=== PATIENT | female | born 1985 | race Two or more races ===

== ENCOUNTER 2017-06-27 09:39 | Outpatient (CLI) | payer OTHER ==
[~2017-06-27 09:39] MED LIST: ZYRTEC10 MG PO
== END 2017-06-27 09:44 | disposition home or self-care (01) ==
LOC: SONOGRAMA 09:39
DX: Z34.82 Encounter for supervision of other normal pregnancy, second trimester (principal); Z3A.20 20 weeks gestation of pregnancy

== ENCOUNTER → 2017-08-01 08:10 | Outpatient (CLI) | payer OTHER | END | disposition home or self-care (01) | LOC: LAB 08:10 | DX: Z34.00 Encounter for supervision of normal first pregnancy, unspecified trimester (principal) ==

== ENCOUNTER 2017-08-24 12:52 | Outpatient (CLI) | payer OTHER | END 2017-08-24 16:23 | disposition home or self-care (01) | LOC: SONOGRAMA 12:52 | DX: Z34.00 Encounter for supervision of normal first pregnancy, unspecified trimester (principal) ==

== ENCOUNTER → 2017-09-27 15:14 | Outpatient (CLI) | payer OTHER | END | disposition home or self-care (01) | LOC: LAB 15:14 | DX: Z34.00 Encounter for supervision of normal first pregnancy, unspecified trimester (principal) ==

== ENCOUNTER 2017-10-06 13:26 | Inpatient (IN) | payer OTHER ==
[~2017-10-06] VITALS: Ht 157.5 cm; Wt 77.6 kg
[2017-10-16] MEDS ORDERED: PRENATAL FORMU1 EAC1 PO (03:42)
[2017-10-18] MEDS ORDERED: DERMOPLAST PAIN78 GM TOP (05:15)
== END 2017-10-18 16:12 | DRG 775 ==
LOC: LDR 10-16 02:41 → SURG-SUITE 10-16 02:41 → OB/GYN 10-23 13:24
PROC: 10E0XZZ Delivery of Products of Conception, External Approach (ICD-10-PCS; principal; 2017-10-16)
PROC: 0W8NXZZ Division of Female Perineum, External Approach (ICD-10-PCS; 2017-10-16)
PROC: 4A033R1 Measurement of Arterial Saturation, Peripheral, Percutaneous Approach (ICD-10-PCS; 2017-10-16)
PROC: 4A1HXCZ Monitoring of Products of Conception, Cardiac Rate, External Approach (ICD-10-PCS; 2017-10-16)
PROC: 3E033VJ Introduction of Other Hormone into Peripheral Vein, Percutaneous Approach (ICD-10-PCS; 2017-10-16)
DX: O80 Encounter for full-term uncomplicated delivery (principal); Z3A.39 39 weeks gestation of pregnancy; Z37.0 Single live birth

== ENCOUNTER 2018-03-12 11:17 | Outpatient (CLI) | payer OTHER ==
[~2018-03-12 11:17] MED LIST changes: +DERMOPLAST PAIN78 GM TOP; +PRENATAL FORMU1 EAC1 PO
== END 2018-03-12 11:20 | disposition home or self-care (01) ==
LOC: LAB 11:17
DX: Z11.3 Encounter for screening for infections with a predominantly sexual mode of transmission (principal)

== ENCOUNTER → 2018-10-25 07:37 | Outpatient (CLI) | payer OTHER | END | disposition home or self-care (01) | LOC: LAB 07:37 | DX: E04.1 Nontoxic single thyroid nodule (principal); N92.1 Excessive and frequent menstruation with irregular cycle; E78.2 Mixed hyperlipidemia; E55.9 Vitamin D deficiency, unspecified ==

== ENCOUNTER → 2019-03-28 16:26 | Outpatient (CLI) | payer OTHER | END | disposition home or self-care (01) | LOC: LAB 16:26 | DX: R05 Cough (principal); J11.1 Influenza due to unidentified influenza virus with other respiratory manifestations ==

== ENCOUNTER → 2019-06-12 11:27 | Outpatient (CLI) | payer OTHER | END | disposition home or self-care (01) | LOC: LAB 11:27 | DX: D50.8 Other iron deficiency anemias (principal); E83.51 Hypocalcemia; N39.0 Urinary tract infection, site not specified; E03.8 Other specified hypothyroidism ==

== ENCOUNTER 2019-07-15 08:41 | Outpatient (CLI) | payer OTHER | END 2019-07-15 08:48 | disposition home or self-care (01) | LOC: LAB 08:41 | DX: J11.1 Influenza due to unidentified influenza virus with other respiratory manifestations (principal); J20.0 Acute bronchitis due to Mycoplasma pneumoniae ==

== ENCOUNTER → 2020-01-10 08:28 | Outpatient (CLI) | payer OTHER | END | disposition home or self-care (01) | LOC: LAB 08:28 | PROVIDERS: ATTEND Obstetrics & Gynecology | DX: N95.1 Menopausal and female climacteric states (principal); E28.39 Other primary ovarian failure; E04.1 Nontoxic single thyroid nodule; E78.00 Pure hypercholesterolemia, unspecified; E55.9 Vitamin D deficiency, unspecified ==

== ENCOUNTER 2020-01-20 15:30 | Outpatient (CLI) | payer OTHER | END 2020-01-20 15:31 | disposition home or self-care (01) | LOC: LAB 15:30 | DX: Z20.828 Contact with and (suspected) exposure to other viral communicable diseases (principal) ==

== ENCOUNTER → 2020-04-01 12:40 | Outpatient (CLI) | payer OTHER | END | disposition home or self-care (01) | LOC: LAB 12:40 | PROVIDERS: ATTEND Internal Medicine | DX: Z20.828 Contact with and (suspected) exposure to other viral communicable diseases (principal) ==

== ENCOUNTER 2020-04-07 15:18 | Outpatient (CLI) | payer OTHER | END 2020-04-13 15:20 | disposition home or self-care (01) | LOC: PPH VACUNA 15:18 | DX: Z23 Encounter for immunization (principal) ==

== ENCOUNTER → 2020-04-21 15:40 | Outpatient (CLI) | payer OTHER | END | disposition home or self-care (01) | LOC: LAB 15:40 | PROVIDERS: ATTEND Surgery | DX: Z20.828 Contact with and (suspected) exposure to other viral communicable diseases (principal) ==

== ENCOUNTER → 2020-04-27 13:19 | Outpatient (CLI) | payer OTHER | END | disposition home or self-care (01) | LOC: LAB 13:19 | PROVIDERS: ATTEND Specialist | DX: Z11.3 Encounter for screening for infections with a predominantly sexual mode of transmission (principal) ==

== ENCOUNTER 2020-04-30 13:14 | Outpatient (CLI) | payer OTHER | END 2020-04-30 16:10 | disposition home or self-care (01) | LOC: SONOGRAMA 13:14 | PROVIDERS: ATTEND Radiology Diagnostic Radiology | DX: E03.2 Hypothyroidism due to medicaments and other exogenous substances (principal) ==

== ENCOUNTER 2020-05-04 11:33 | Outpatient (CLI) | payer OTHER | END 2020-05-04 13:11 | disposition home or self-care (01) | LOC: LAB 11:33 | PROVIDERS: ATTEND Internal Medicine | DX: Z20.828 Contact with and (suspected) exposure to other viral communicable diseases (principal) ==

== ENCOUNTER 2020-05-08 07:19 | Outpatient (CLI) | payer OTHER | END 2020-05-08 15:39 | disposition home or self-care (01) | LOC: LAB 07:19 | PROVIDERS: ATTEND Internal Medicine | DX: Z20.828 Contact with and (suspected) exposure to other viral communicable diseases (principal) ==

== ENCOUNTER → 2020-10-19 09:00 | Outpatient (CLI) | payer OTHER | END | disposition home or self-care (01) | LOC: LAB 09:00 | PROVIDERS: ATTEND Obstetrics & Gynecology | DX: N95.1 Menopausal and female climacteric states (principal); E28.310 Symptomatic premature menopause; E04.1 Nontoxic single thyroid nodule; E55.9 Vitamin D deficiency, unspecified; E78.00 Pure hypercholesterolemia, unspecified ==

== ENCOUNTER → 2020-11-03 06:57 | Outpatient (CLI) | payer OTHER | END | disposition home or self-care (01) | LOC: LAB 06:57 | PROVIDERS: ATTEND Emergency Medicine Pediatric Emergency Medicine | DX: Z03.818 Encounter for observation for suspected exposure to other biological agents ruled out (principal) ==

== ENCOUNTER 2021-01-14 08:01 | Outpatient (CLI) | payer OTHER | END 2021-01-14 08:03 | disposition home or self-care (01) | LOC: SONOGRAMA 08:01 | PROVIDERS: ATTEND Obstetrics & Gynecology | DX: N83.292 Other ovarian cyst, left side (principal); N83.291 Other ovarian cyst, right side; R10.84 Generalized abdominal pain; Z12.31 Encounter for screening mammogram for malignant neoplasm of breast ==

== ENCOUNTER 2021-03-22 08:00 | Outpatient (CLI) | payer OTHER | END 2021-03-22 08:30 | disposition home or self-care (01) | LOC: PPH VACUNA 08:00 | PROVIDERS: ATTEND Emergency Medicine Pediatric Emergency Medicine | DX: Z23 Encounter for immunization (principal) ==

== ENCOUNTER 2021-05-10 08:00 | Outpatient (CLI) | payer OTHER | END 2021-05-10 08:30 | disposition home or self-care (01) | LOC: PPH VACUNA 08:00 | PROVIDERS: ATTEND Emergency Medicine Pediatric Emergency Medicine | DX: Z23 Encounter for immunization (principal) ==

== ENCOUNTER 2021-06-08 10:29 | Outpatient (CLI) | payer OTHER | END 2021-06-08 10:31 | disposition home or self-care (01) | LOC: RAD 10:29 | PROVIDERS: ATTEND Physical Medicine & Rehabilitation | DX: M54.2 Cervicalgia (principal); M54.6 Pain in thoracic spine; M17.11 Unilateral primary osteoarthritis, right knee; M54.59 Other low back pain ==

== ENCOUNTER 2021-06-09 13:26 | Outpatient (CLI) | payer OTHER | END 2021-06-09 13:30 | disposition home or self-care (01) | LOC: LAB 13:26 | PROVIDERS: ATTEND Plastic Surgery | DX: Z03.818 Encounter for observation for suspected exposure to other biological agents ruled out (principal); Z11.59 Encounter for screening for other viral diseases ==

== ENCOUNTER 2021-06-14 12:10 | Outpatient (CLI) | payer OTHER | END 2021-06-14 12:11 | disposition home or self-care (01) | LOC: LAB 12:10 | PROVIDERS: ATTEND Plastic Surgery | DX: Z03.818 Encounter for observation for suspected exposure to other biological agents ruled out (principal); Z11.59 Encounter for screening for other viral diseases ==

== ENCOUNTER 2021-06-14 13:36 | Outpatient (CLI) | payer OTHER | END 2021-06-14 13:37 | disposition home or self-care (01) | LOC: LAB 13:36 | PROVIDERS: ATTEND Plastic Surgery | DX: Z03.818 Encounter for observation for suspected exposure to other biological agents ruled out (principal); Z11.59 Encounter for screening for other viral diseases ==

== ENCOUNTER 2021-06-17 10:00 | Outpatient (CLI) | payer OTHER | END 2021-06-17 10:30 | disposition home or self-care (01) | LOC: ASH CLINIC 10:00 | PROVIDERS: ATTEND Internal Medicine Sports Medicine | DX: U07.1 COVID-19 (principal); Z23 Encounter for immunization ==

== ENCOUNTER 2021-09-15 10:37 | Emergency (ER) | payer OTHER ==
[~2021-09-15] VITALS: Ht 160 cm; Wt 70.3 kg
[2021-09-15] MEDS ORDERED: CYCLOBENZAPRINE10 MG PO (13:58)
== END 2021-09-15 14:09 | disposition home or self-care (01) ==
LOC: ER 10:37
DX: M54.2 Cervicalgia (principal); M54.50 Low back pain, unspecified; M62.838 Other muscle spasm; Z20.822 Contact with and (suspected) exposure to COVID-19

== ENCOUNTER → 2021-10-12 14:34 | Outpatient (CLI) | payer OTHER ==
[~2021-10-12 14:34] MED LIST changes: +CYCLOBENZAPRINE10 MG PO
== END | disposition home or self-care (01) ==
LOC: LAB 14:34
PROVIDERS: ATTEND Surgery
DX: Z20.828 Contact with and (suspected) exposure to other viral communicable diseases (principal)

== ENCOUNTER 2021-11-18 14:21 | Outpatient (CLI) | payer OTHER | END 2021-11-18 14:29 | disposition home or self-care (01) | LOC: LAB 14:21 | PROVIDERS: ATTEND Plastic Surgery | DX: Z20.818 Contact with and (suspected) exposure to other bacterial communicable diseases (principal); Z20.822 Contact with and (suspected) exposure to COVID-19 ==

== ENCOUNTER 2022-06-02 08:53 | Outpatient (CLI) | payer OTHER | END 2022-06-02 08:54 | disposition home or self-care (01) | LOC: LAB 08:53 | PROVIDERS: ATTEND General Practice | DX: Z00.00 Encounter for general adult medical examination without abnormal findings (principal); E78.5 Hyperlipidemia, unspecified; E55.9 Vitamin D deficiency, unspecified; N39.0 Urinary tract infection, site not specified; R42 Dizziness and giddiness; D64.9 Anemia, unspecified; E11.8 Type 2 diabetes mellitus with unspecified complications; E78.00 Pure hypercholesterolemia, unspecified; I10 Essential (primary) hypertension; E03.9 Hypothyroidism, unspecified ==

== ENCOUNTER 2022-06-03 10:53 | Outpatient (CLI) | payer OTHER | END 2022-06-03 10:57 | disposition home or self-care (01) | LOC: LAB 10:53 | PROVIDERS: ATTEND General Practice | DX: Z00.00 Encounter for general adult medical examination without abnormal findings (principal); E78.5 Hyperlipidemia, unspecified; E55.9 Vitamin D deficiency, unspecified; N39.0 Urinary tract infection, site not specified; R42 Dizziness and giddiness ==

== ENCOUNTER 2022-08-02 13:59 | Outpatient (CLI) | payer OTHER | END 2022-08-02 14:07 | disposition home or self-care (01) | LOC: MAMO-SONO 13:59 | PROVIDERS: ATTEND Obstetrics & Gynecology | DX: Z12.31 Encounter for screening mammogram for malignant neoplasm of breast (principal); N60.11 Diffuse cystic mastopathy of right breast; N60.12 Diffuse cystic mastopathy of left breast ==

== ENCOUNTER 2022-08-22 08:34 | Outpatient (CLI) | payer OTHER | END 2022-08-22 08:46 | disposition home or self-care (01) | LOC: LAB 08:34 | PROVIDERS: ATTEND Obstetrics & Gynecology | DX: N95.1 Menopausal and female climacteric states (principal); E28.39 Other primary ovarian failure; E04.1 Nontoxic single thyroid nodule; E55.9 Vitamin D deficiency, unspecified; E78.00 Pure hypercholesterolemia, unspecified; E08.00 Diabetes mellitus due to underlying condition with hyperosmolarity without nonketotic hyperglycemic-hyperosmolar coma (NKHHC); N39.8 Other specified disorders of urinary system ==

== ENCOUNTER 2022-08-23 08:00 | Outpatient (CLI) | payer OTHER | END 2022-08-23 08:02 | disposition home or self-care (01) | LOC: SONOGRAMA 08:00 | PROVIDERS: ATTEND Obstetrics & Gynecology | DX: R10.9 Unspecified abdominal pain (principal); N39.0 Urinary tract infection, site not specified; E04.1 Nontoxic single thyroid nodule ==

== ENCOUNTER 2023-03-17 13:22 | Outpatient (CLI) | payer OTHER | END 2023-03-17 13:32 | disposition home or self-care (01) | LOC: PPH VACUNA 13:22 | PROVIDERS: ATTEND Emergency Medicine Pediatric Emergency Medicine | DX: Z23 Encounter for immunization (principal) | CPT/HCPCS: 90686; G0008 ==

== ENCOUNTER 2023-06-07 09:50 | Outpatient (CLI) | payer OTHER ==
[2023-06-07 10:31] LABS: PH,URINE 7.5 (5.0-8.0); URINE APPEARANCE Clear; URINE BILIRRUBIN Negative (NEGATIVE); URINE BLOOD Negative; URINE COLOR Yellow; URINE GLUCOSE Negative (NEGATIVE); URINE LEUKOCYTE Trace; URINE NITRATE Negative; URINE PROTEIN Negative (NEGATIVE); URINE UROBILINOGEN 0.2 E.U./dl
[2023-06-07 10:33] LABS: URINE BACTERIA 35.2 uL (0.0-1933); URINE EPITHELIAL CELLS 3.8 uL (0.0-38.8); URINE WBC 60.1 uL (0.0-23.2)
== END 2023-06-07 09:51 | disposition home or self-care (01) ==
LOC: LAB 09:50
PROVIDERS: ATTEND Obstetrics & Gynecology
DX: N39.0 Urinary tract infection, site not specified (principal)

== ENCOUNTER 2023-06-09 11:47 | Outpatient (CLI) | payer OTHER | END 2023-06-09 11:48 | disposition home or self-care (01) | LOC: RAD 11:47 | PROVIDERS: ATTEND Physical Medicine & Rehabilitation | DX: M25.561 Pain in right knee (principal); M25.571 Pain in right ankle and joints of right foot; S80.01XA Contusion of right knee, initial encounter; S90.01XA Contusion of right ankle, initial encounter ==

== ENCOUNTER 2023-09-04 14:07 | Outpatient (CLI) | payer OTHER | END 2023-09-04 14:09 | disposition home or self-care (01) | LOC: SONOGRAMA 14:07 | PROVIDERS: ATTEND Specialist | DX: N92.1 Excessive and frequent menstruation with irregular cycle (principal) ==

== ENCOUNTER 2024-01-05 07:20 | Outpatient (CLI) | payer OTHER ==
[2024-01-05 08:31] LABS: HEMATOCRIT 36.7 % (36.0-45.00); HEMOGLOBIN 12.7 g/dL (12.0-15.00); MEAN CELL VOLUME 94.2 fL (80.00-100.00); MEAN CORPUSCULAR HEMOGLOBIN 32.7 pg (27.00-32.0); MEAN CORPUSCULAR HGB CONC 34.7 g/dl (32.0-36.0); PLATELET COUNT 229 K/uL (150-450); RED CELL DISTRIBUTION WIDTH 13.8 % (11.5-14.5)
[2024-01-05 08:42] LABS: ERYTHROCYTE SEDIMENTATION RATE 6 mm/hr
[2024-01-05 09:06] LABS: ALKALINE PHOSPHATASE 59 U/L (50-136); ALT/SGPT 21 U/L (12-78); ANION GAP 6 (10.0-20.0); AST/SGOT 13 U/L (15-37); BILIRUBIN TOTAL 0.72 mg/dL (0.3-1.2); BLOOD UREA NITROGEN 12 mg/dL (7-18); BUN CREA RATIO 21 (7.0-25.0); C-REACTIVE PROTEIN < 0.29 MG/DL (0.00-0.29); CALCIUM 8.7 mg/dL (8.5-10.1); CARBON DIOXIDE 29 mEq/L (21-32); CHLORIDE 108 mmol/L (98-107); CHOL HDL RATIO 2.6 (0-5.0); CHOLESTEROL 167 mg/dL (0-200); CREATININE SERUM 0.57 mg/dL (0.55-1.02); GLOBULINA 3.1 G/DL (2.4-3.5); GLUCOSE FASTING 82 mg/dL (65-100); HDL 64 mg/dl (40-60); LDH 147 U/L (84-246); LDL 91 mg/dl (0-130); OSMOLALITY SERUM 276 MOSM/KG (275-295); POTASSIUM 4.21 mEq/L (3.5-5.1); SODIUM 139 mmol/L (136-145); T4 TOTAL 6.38 UG/DL (4.8-13.9); TOTAL PROTEIN 7.1 gm/dL (6.4-8.2); TRIGLYCERIDES 62 mg/dL (0-150); VLDL 12 (0-39)
[2024-01-05 09:16] LABS: PH,URINE 6.5 (5.0-8.0); URINE APPEARANCE Clear; URINE BILIRRUBIN Negative (NEGATIVE); URINE BLOOD Negative; URINE COLOR Yellow; URINE GLUCOSE Negative (NEGATIVE); URINE LEUKOCYTE Negative; URINE NITRATE Negative; URINE PROTEIN Negative (NEGATIVE); URINE UROBILINOGEN 0.2 E.U./dl
[2024-01-05 09:21] LABS: URINE BACTERIA 54.1 uL (0.0-1933); URINE EPITHELIAL CELLS 2.6 uL (0.0-38.8); URINE RBC 4.5 uL (0.0-20.8)
[2024-01-05 09:40] LABS: URINE WBC 0.7 uL (0.0-23.2)
[2024-01-05 10:42] LABS: T3 TOTAL 1.1 ng/ml (0.846-2.02); VITAMIN D3 25 HYDROXY 32.49 ng/ml (30-120)
[2024-01-06 05:07] LABS: hav igm Negative (Negative); hcv Non Reactive (Non Reactive); hep b c Negative (Negative)
[2024-01-06 09:15] LABS: CA 125 8.2 U/mL (0.0-38.1); CA 19-9 6 U/mL (0-35)
== END 2024-01-05 14:01 | disposition home or self-care (01) ==
LOC: LAB 07:20
PROVIDERS: ATTEND Surgery
DX: E78.2 Mixed hyperlipidemia (principal); E03.8 Other specified hypothyroidism; E04.1 Nontoxic single thyroid nodule; R73.01 Impaired fasting glucose; R80.9 Proteinuria, unspecified; E53.8 Deficiency of other specified B group vitamins; E55.9 Vitamin D deficiency, unspecified; D64.89 Other specified anemias; R10.9 Unspecified abdominal pain; M06.4 Inflammatory polyarthropathy

== ENCOUNTER 2024-04-17 14:02 | Outpatient (CLI) | payer OTHER | END 2024-04-17 14:04 | disposition home or self-care (01) | LOC: MAMO-SONO 14:02 | PROVIDERS: ATTEND Surgery | DX: N60.11 Diffuse cystic mastopathy of right breast (principal); N60.12 Diffuse cystic mastopathy of left breast ==

== ENCOUNTER → 2024-04-23 08:24 | Outpatient (CLI) | payer OTHER ==
[2024-04-23 09:08] LABS: PH,URINE 6.5 (5.0-8.0); URINE APPEARANCE Clear; URINE BILIRRUBIN Negative (NEGATIVE); URINE BLOOD Negative; URINE COLOR Yellow; URINE GLUCOSE Negative (NEGATIVE); URINE KETONE Negative (NEGATIVE); URINE LEUKOCYTE Negative; URINE NITRATE Negative; URINE PROTEIN Negative (NEGATIVE); URINE UROBILINOGEN 0.2 E.U./dl
[2024-04-23 09:11] LABS: URINE BACTERIA 163.7 uL (0.0-1933); URINE EPITHELIAL CELLS 13.9 uL (0.0-38.8); URINE WBC 2.1 uL (0.0-23.2)
[2024-04-23 09:11] LABS: HEMATOCRIT 37.2 % (36.0-45.00); HEMOGLOBIN 12.8 g/dL (12.0-15.00); MEAN CORPUSCULAR HEMOGLOBIN 31.9 pg (27.00-32.0); MEAN CORPUSCULAR HGB CONC 34.3 g/dl (32.0-36.0); PLATELET COUNT 279 K/uL (150-450); RED CELL DISTRIBUTION WIDTH 13.6 % (11.5-14.5)
[2024-04-23 10:16] LABS: ALBUMIN 4.2 gm/dL (3.4-5.0); BILIRUBIN TOTAL 1.02 mg/dL (0.3-1.2); CALCIUM 9.2 mg/dL (8.5-10.1); CHOL HDL RATIO 2.5 (0-5.0); CREATININE SERUM 0.58 mg/dL (0.55-1.02); FREE TRIODOTIRONINE 2.59 pg/ml (2.18-3.98); GFR 115.73; GLOBULINA 3.1 G/DL (2.4-3.5); POTASSIUM 3.95 mEq/L (3.5-5.1); T4 TOTAL 8.08 UG/DL (4.8-13.9); TOTAL PROTEIN 7.3 gm/dL (6.4-8.2); TSH 3.58 uIU/mL (0.358-3.74)
[2024-04-23 12:25] LABS: VITAMIN D3 25 HYDROXY 30.91 ng/ml (30-120)
[2024-04-24 07:09] LABS: hav igm Negative (Negative); hcv Non Reactive (Non Reactive); hep b c Negative (Negative); hep b s ag Negative (Negative)
[2024-04-24 09:07] LABS: ESTRADIOL SERUM 57.6 pg/mL (.); FOLLICLE STIMULATING HORMONE 5.1 mIU/mL (.)
[2024-04-25 01:04] LABS: chla t Negative (Negative); neiss Negative (Negative)
== END | disposition home or self-care (01) ==
LOC: LAB 08:24
PROVIDERS: ATTEND Obstetrics & Gynecology
DX: N95.1 Menopausal and female climacteric states (principal); E28.8 Other ovarian dysfunction; E04.1 Nontoxic single thyroid nodule; E55.9 Vitamin D deficiency, unspecified; E78.00 Pure hypercholesterolemia, unspecified; E08.00 Diabetes mellitus due to underlying condition with hyperosmolarity without nonketotic hyperglycemic-hyperosmolar coma (NKHHC); N39.0 Urinary tract infection, site not specified; R19.5 Other fecal abnormalities; R97.8 Other abnormal tumor markers; E11.9 Type 2 diabetes mellitus without complications; K76.9 Liver disease, unspecified

== ENCOUNTER 2024-04-26 03:30 | Outpatient (CLI) | payer OTHER | END 2024-04-26 04:00 | disposition home or self-care (01) | LOC: PPH VACUNA 03:30 | PROVIDERS: ATTEND Emergency Medicine Pediatric Emergency Medicine | DX: Z23 Encounter for immunization (principal) ==

== ENCOUNTER 2024-06-30 10:18 | Emergency (ER) | payer OTHER ==
[~2024-06-30] VITALS: Ht 160 cm; Wt 67.1 kg
[2024-06-30] MEDS ORDERED: ONDANSETRON HCL 2 MG/ML VIAL IM STA (11:01)
[2024-06-30] MEDS ORDERED: ONDANSETRON HCL 2 MG/ML VIAL ONE (11:12)
[2024-06-30 11:58] LABS: URINE APPEARANCE Clear; URINE BILIRRUBIN Negative (NEGATIVE); URINE BLOOD Negative; URINE COLOR Yellow; URINE GLUCOSE Negative (NEGATIVE); URINE KETONE Negative (NEGATIVE); URINE LEUKOCYTE Negative; URINE NITRATE Negative; URINE PROTEIN Negative (NEGATIVE); URINE UROBILINOGEN 0.2 E.U./dl
[2024-06-30 12:02] LABS: URINE BACTERIA 31.7 uL (0.0-1933)
[2024-06-30 12:03] LABS: HEMOGLOBIN 14.2 g/dL (12.0-15.00); MEAN CELL VOLUME 93.6 fL (80.00-100.00); MEAN CORPUSCULAR HEMOGLOBIN 32.4 pg (27.00-32.0); MEAN CORPUSCULAR HGB CONC 34.7 g/dl (32.0-36.0); PLATELET COUNT 280 K/uL (150-450); RED BLOOD COUNT 4.38 M/uL (4.00-6.00); RED CELL DISTRIBUTION WIDTH 13.7 % (11.5-14.5)
[2024-06-30 12:14] LABS: URINE EPITHELIAL CELLS 1.2 uL (0.0-38.8); URINE RBC 1.7 uL (0.0-20.8); URINE WBC 0 uL (0.0-23.2)
[2024-06-30 12:22] LABS: CALCIUM 9.4 mg/dL (8.5-10.1); CREATININE SERUM 0.58 mg/dL (0.55-1.02); GFR 115.73; POTASSIUM 3.94 mEq/L (3.5-5.1)
== END 2024-06-30 17:12 | disposition home or self-care (01) ==
LOC: ER 10:20
PROVIDERS: General Practice
DX: R10.9 Unspecified abdominal pain (principal)

== ENCOUNTER 2024-07-02 08:18 | Outpatient (CLI) | payer OTHER | END 2024-07-02 08:30 | disposition home or self-care (01) | LOC: SONOGRAMA 08:18 | PROVIDERS: ATTEND Emergency Medicine | DX: R10.9 Unspecified abdominal pain (principal) ==

== ENCOUNTER 2024-07-04 07:51 | Outpatient (CLI) | payer OTHER | END 2024-07-04 08:10 | disposition home or self-care (01) | LOC: TOM 07:51 | PROVIDERS: ATTEND Internal Medicine Sports Medicine | DX: R10.32 Left lower quadrant pain (principal) ==

== ENCOUNTER 2025-04-29 15:00 | Outpatient (CLI) | payer OTHER | END 2025-04-29 15:10 | disposition home or self-care (01) | LOC: PPH VACUNA 15:00 | PROVIDERS: ATTEND Emergency Medicine Pediatric Emergency Medicine | DX: Z23 Encounter for immunization (principal) ==